=== PATIENT | male | born 2000 | race Caucasian/White ===

== ENCOUNTER 2020-01-10 12:59 | Inpatient (IN) | payer BC ==
[2020-01-10 14:05] LABS: Amphetamine Screen,Urine Not Detected (NotDetected); Barbiturate Screen,Urine Not Detected (NotDetected); Benzodiazepines Screen,Urine Not Detected (NotDetected); Cocaine Screen,Urine Not Detected (NotDetected); Methadone Screen, Urine Not Detected (NotDetected); Opiate Screen,Urine Not Detected (NotDetected); Oxycodone Screen, Urine Not Detected (NotDetected); Phencyclidine Screen,Urine Not Detected (NotDetected); Tricyclic Antidepressant,Urine Not Detected (NotDetected); Urn Cannabinoid Scrn Detected (NotDetected)
--- NOTE | 2020-01-10 14:37 | ED ---
Psych HPI - General Chief Complaint: Psychiatric Symptoms Stated Complaint: Mental health Time Seen by Provider: 01/10/20 13:17 Source: patient, family, RN notes reviewed Mode of arrival: ambulatory - History of Present Illness Initial Comments: This is a 19-year-old male with a history depression who presents with his mother today with complaints of feeling suicidal. He apparently broke up with his long-term girlfriend today and this is triggered today's episode. Apparentl y try to overdose about 3 weeks ago. He does admit to using marijuana but no other drugs or alcohol. No definitive plan at this point. Other complaints or modifying factors at this time. MD Complaint: suicidal ideation, feels depressed - Related Data Previous Rx's Medication Instructions Recorded Nicotine 7Mg/24Hr Patch [Habitrol] 1 patch TRANSDERM DAILY patch 01/13/20 Sertraline [Zoloft] 100 mg PO DAILY #30 tab 01/13/20 Allergies Allergy/AdvReac Type Severity Reaction Status Date / Time No Known Allergies Allergy Verified 01/10/20 18:41 Review of Systems ROS Statement: Those systems with pertinent positive or pertinent negative responses have been documented in the HPI. ROS Other: All systems not noted in ROS Statement are negative. Past Medical History Past Medical History: No Reported History Past Surgical History: No Surgical Hx Reported Past Psychological History: Depression Smoking Status: Vaper Past Alcohol Use History: None Reported Past Drug Use History: Marijuana General Exam - General Exam Comments Initial Comments: This is a well-developed asthenic appearing male who is awake alert oriented 3 Limitations: no limitations General appearance: alert, in no apparent distress Head exam: Present: atraumatic, normocephalic, normal inspection Eye exam: Present: normal appearance, PERRL, EOMI. Absent: scleral icterus, conjunctival injection, periorbital swelling ENT exam: Present: normal exam, mucous membranes moist Neck exam: Present: normal inspection. Absent: tenderness, meningismus, lymphadenopathy Respiratory exam: Present: normal lung sounds bilaterally. Absent: respiratory distress, wheezes, rales, rhonchi, stridor Cardiovascular Exam: Present: regular rate, normal rhythm, normal heart sounds. Absent: systolic murmur, diastolic murmur, rubs, gallop, clicks GI/Abdominal exam: Present: soft, normal bowel sounds. Absent: distended, tenderness, guarding, rebound, rigid Extremities exam: Present: normal inspection, full ROM, normal capillary refill. Absent: tenderness, pedal edema, joint swelling, calf tenderness Back exam: Present: normal inspection Neurological exam: Present: alert, oriented X3, CN II-XII intact Psychiatric exam: Present: depressed, flat affect, suicidal ideation Skin exam: Present: warm, dry, intact, normal color. Absent: rash Course Vital Signs 01/10/20 13:08 Temperature 98.3 F Pulse Rate 102 H Respiratory 20 Rate Blood Pressure 121/89 O2 Sat by Pulse 98 Oximetry - Reevaluation(s) Reevaluation #1: 01/10/20 15:23 Patient's care is endorsed to Dr. Moran at our shift change and eating. Psychiatric evaluation. Medical Decision Making - Lab Data Result diagrams: 01/11/20 07:59 01/11/20 07:59 Lab Results 01/10/20 Range/Units 13:50 Urine Opiates Screen Not Detected (NotDetected) Ur Oxycodone Screen Not Detected (NotDetected) Urine Methadone Screen Not Detected (NotDetected) Ur Propoxyphene Screen Not Detected (NotDetected) Ur Barbiturates Screen Not Detected (NotDetected) U Tricyclic Antidepress Not Detected (NotDetected) Ur Phencyclidine Scrn Not Detected (NotDetected) Ur Amphetamines Screen Not Detected (NotDetected) U Methamphetamines Scrn Not Detected (NotDetected) U Benzodiazepines Scrn Not Detected (NotDetected) Urine Cocaine Screen Not Detected (NotDetected) U Marijuana (THC) Screen Detected H (NotDetected) Disposition Clinical Impression: Depression, Suicidal ideation Disposition: ADMITTED IP TO THIS HOSP Condition: Good
[2020-01-10] MEDS ORDERED: ACETAMINOPHEN TAB 325 MG TAB PO PRN (16:08)
[2020-01-10] MEDS ORDERED: MAGNESIUM HYDROXIDE 2,400 MG/10 ML CUP PO PRN (16:08)
[2020-01-10] MEDS ORDERED: MAG HYDROX/AL HYDROX/SIMETH 30 ML CUP PO PRN (16:08)
[2020-01-10] MEDS ORDERED: LORazepam 1 MG TAB PO PRN (16:08)
[2020-01-10] MEDS ORDERED: HALOPERIDOL LACTATE 5 MG/ML 1 ML VIAL IM PRN (16:12)
[2020-01-11 08:33] LABS: Basophils % (A) 0 %; Eosinophils # (A) 0.1 k/uL (0-0.7); Eosinophils % (A) 1 %; HGB 17.6 gm/dL (13.0-17.5); Lymphocytes # (A) 2.3 k/uL (1.0-4.8); Lymphocytes % (A) 24 %; MCH 28.3 pg (25.0-35.0); MCHC 31.6 g/dL (31.0-37.0); MCV 89.6 fL (80.0-100.0); Mean Platelet Volume 7.4; Monocytes # (A) 0.4 k/uL (0-1.0); Monocytes % (A) 4 %; Neutrophils # (A) 6.6 k/uL (1.3-7.7); Neutrophils % (A) 69 %; Platelet Count 353 k/uL (150-450); RBC 6.22 m/uL (4.30-5.90); RDW 12.6 % (11.5-15.5); WBC 9.6 k/uL (4.0-11.0)
[2020-01-11 08:39] LABS: HCT 55.7 % (39.0-53.0)
[2020-01-11] MEDS ORDERED: VENLAFAXINE HCL ER 150 MG CAP PO SCH (09:00)
[2020-01-11 09:38] LABS: ALT 32 U/L (4-49); AST 33 U/L (17-59); African American GFR (CKD) >90 (>60 ml/min/1.73 sqM); Albumin 5.9 g/dL (3.5-5.0); Alkaline Phosphatase 75 U/L (38-126); Anion Gap 12 mmol/L; Blood Urea Nitrogen 17 mg/dL (9-20); Calcium 11.1 mg/dL (8.4-10.2); Carbon Dioxide 29 mmol/L (22-30); Chloride 101 mmol/L (98-107); Cholesterol 216 mg/dL (<200); Glucose 92 mg/dL (74-99); HDL Cholesterol 83 mg/dL (40-60); LDL Cholesterol,Calculated 122 mg/dL (0-99); Non-African American GFR(CKD) >90 (>60 ml/min/1.73 sqM); Potassium 5.1 mmol/L (3.5-5.1); Sodium 142 mmol/L (137-145); Total Bilirubin 1.3 mg/dL (0.2-1.3); Total Protein 9.5 g/dL (6.3-8.2); Triglycerides 56 mg/dL (<150)
--- NOTE | 2020-01-11 12:23 | P.HP ---
Psychiatric H&P - . H&P Date: 01/11/20 History & Physical: Allergies Allergy/AdvReac Type Severity Reaction Status Date / Time No Known Allergies Allergy Verified 01/10/20 18:41 Vital Signs Temp 98.1 F 01/11/20 02:36 Pulse 77 01/11/20 02:36 Resp 14 01/11/20 02:36 BP 128/80 01/11/20 02:36 Pulse Ox 97 01/10/20 18:26 Intake & Output 01/10/20 01/11/20 01/11/20 18:59 06:59 18:59 Weight 63.957 kg Laboratory Last Values WBC 9.6 k/uL (4.0-11.0) 01/11/20 07:59 RBC 6.22 m/uL (4.30-5.90) H 01/11/20 07:59 Hgb 17.6 gm/dL (13.0-17.5) H 01/11/20 07:59 Hct 55.7 % (39.0-53.0) H 01/11/20 07:59 MCV 89.6 fL (80.0-100.0) 01/11/20 07:59 MCH 28.3 pg (25.0-35.0) 01/11/20 07:59 MCHC 31.6 g/dL (31.0-37.0) 01/11/20 07:59 RDW 12.6 % (11.5-15.5) 01/11/20 07:59 Plt Count 353 k/uL (150-450) 01/11/20 07:59 MPV 7.4 01/11/20 07:59 Neutrophils % 69 % 01/11/20 07:59 Lymphocytes % 24 % 01/11/20 07:59 Monocytes % 4 % 01/11/20 07:59 Eosinophils % 1 % 01/11/20 07:59 Basophils % 0 % 01/11/20 07:59 Neutrophils # 6.6 k/uL (1.3-7.7) 01/11/20 07:59 Lymphocytes # 2.3 k/uL (1.0-4.8) 01/11/20 07:59 Monocytes # 0.4 k/uL (0-1.0) 01/11/20 07:59 Eosinophils # 0.1 k/uL (0-0.7) 01/11/20 07:59 Basophils # 0.0 k/uL (0-0.2) 01/11/20 07:59 Sodium 142 mmol/L (137-145) 01/11/20 07:59 Potassium 5.1 mmol/L (3.5-5.1) 01/11/20 07:59 Chloride 101 mmol/L (98-107) 01/11/20 07:59 Carbon Dioxide 29 mmol/L (22-30) 01/11/20 07:59 Anion Gap 12 mmol/L 01/11/20 07:59 BUN 17 mg/dL (9-20) 01/11/20 07:59 Creatinine 0.94 mg/dL (0.66-1.25) 01/11/20 07:59 Est GFR (CKD-EPI)AfAm >90 (>60 ml/min/1.73 sqM) 01/11/20 07:59 Est GFR (CKD-EPI)NonAf >90 (>60 ml/min/1.73 sqM) 01/11/20 07:59 Glucose 92 mg/dL (74-99) 01/11/20 07:59 Calcium 11.1 mg/dL (8.4-10.2) H 01/11/20 07:59 Total Bilirubin 1.3 mg/dL (0.2-1.3) 01/11/20 07:59 AST 33 U/L (17-59) 01/11/20 07:59 ALT 32 U/L (4-49) 01/11/20 07:59 Alkaline Phosphatase 75 U/L (38-126) 01/11/20 07:59 Total Protein 9.5 g/dL (6.3-8.2) H 01/11/20 07:59 Albumin 5.9 g/dL (3.5-5.0) H 01/11/20 07:59 Triglycerides 56 mg/dL (<150) 01/11/20 07:59 Cholesterol 216 mg/dL (<200) H 01/11/20 07:59 LDL Cholesterol, Calc 122 mg/dL (0-99) H 01/11/20 07:59 HDL Cholesterol 83 mg/dL (40-60) H 01/11/20 07:59 TSH 1.800 mIU/L (0.465-4.680) 01/11/20 07:59 Urine Opiates Screen Not Detected (NotDetected) 01/10/20 13:50 Ur Oxycodone Screen Not Detected (NotDetected) 01/10/20 13:50 Urine Methadone Screen Not Detected (NotDetected) 01/10/20 13:50 Ur Propoxyphene Screen Not Detected (NotDetected) 01/10/20 13:50 Ur Barbiturates Screen Not Detected (NotDetected) 01/10/20 13:50 U Tricyclic Antidepress Not Detected (NotDetected) 01/10/20 13:50 Ur Phencyclidine Scrn Not Detected (NotDetected) 01/10/20 13:50 Ur Amphetamines Screen Not Detected (NotDetected) 01/10/20 13:50 U Methamphetamines Scrn Not Detected (NotDetected) 01/10/20 13:50 U Benzodiazepines Scrn Not Detected (NotDetected) 01/10/20 13:50 Urine Cocaine Screen Not Detected (NotDetected) 01/10/20 13:50 U Marijuana (THC) Screen Detected (NotDetected) H 01/10/20 13:50 Coronavirus (PCR) Not Detected (Not Detectd) 01/10/20 16:18 01/11/20 12:14 IDENTIFYING DATA: Patient is a 19-year-old male who currently lives with his parents and siblings and works at [employer] and has no kids. HPI: Patient presented to the hospital yesterday with complaints of suicidal thoughts depression and according to patient there was a recent breakup with his girlfriend. Patient claims that in the ER that he had overdosed approximately 3 weeks ago. Patient's UDS was positive for THC. Patient was seen on the mental health unit today for evaluation. Patient appeared to be anxious and depressed and his affect. He states that for the past 6 months he has been feeling more depressed. He states it is getting Effexor 150 mg daily every day and states that it has not been helping him. He claims that it was "messing with my head". He also claims that he has been feeling more isolative at home and pushing people away. He states that he overdosed on Tylenol 3's 3 weeks ago in his attempt for suicide. He also claims that he has not had suicidal thoughts since then. He described feelings of hopelessness and worthlessness. He claims that his girlfriend broke up with him one day ago which was his acute stressor. He claims that he has been having anxiety and denies any history of manic behaviors in the past. He states that his sleep is poor approximately 3-4 hours of sleep and states that his appetite is poor. Patient denies any suicidal or homicidal ideations intent or plan. At this time patient denies any auditory or visual hallucinations. Patient denies any flight of ideas racing thoughts and increased in goal directed behavior. Patient admits to using marijuana daily approximately 2-3 g a day. He denies any other recreational drug use or cigarettes. PAST PSYCHIATRIC HISTORY: Patient states that he has history of depression and anxiety and depression.. Claims that he is previously on Effexor 150 mg daily for mood. [Patient denies any previous psychiatric hospitalizations.] [Patient denies any psychiatric outpatient follow-up.] He claims that his last suicide attempt was 3 weeks ago when he overdosed on Tylenol threes. PMH:[denies] ALLERGIES: [as per EMR] CHEMICAL DEPENDENCY HISTORY: [as per HPI] FAMILY PSYCHIATRIC/SUBSTANCE USE HISTORY: States that his mother has depression. SOCIAL HISTORY: Patient was born in [place] as his parents were in the . He claims that he grew up in [place]. He states that he completed high school and denies any legal history. He states he currently lives with his parents and siblings and currently works at [employer]. He denies having any kids. MENTAL STATUS EXAM: General Appearance: Patient appears to be thin and tall stated age is alert, [directable, and attempts to cooperate]. Patient appears to have fair hygiene and grooming. Behavior: Patient is seated without any agitated behavior. [] Speech: Patient's speech is [fluent and nonpressured.] Mood/Affect: Patient reports their mood is [depressed and anxious], affect is congruent Suicidality/Homicidality: Patient denies having any homicidal ideation intent or plan. [Denies any suicidal ideations intent or plan] Perceptions: Patient denies any visual hallucinations [and denies any auditory hallucinations] Though content/process: [There is no evidence of any delusional thought content and thought process is linear and goal-directed.] Focus on his symptoms. Memory and concentration: AOX3, grossly intact for the purposes of this session. Can spell "WORLD" backwards Judgment and insight: [poor] STRENGTHS/WEAKNESSES: strength is that patient is [resilient]. Weakness is that patient [has poor insight and is impulsive] INTELLECT: [average] IMPRESSIONS: Major depressive disorder, severe, without psychotic features Anxiety disorder unspecified Cannabis use disorder PLAN: -Patient is admitted under [voluntary] status to MHU for stabilization of psychiatric symptoms and safety. Patient has signed [adult voluntary form and] [medication consent] and is placed in patient's chart. -Medications : Will start patient on Effexor and patient was agreeable to have it cross titrated with Zoloft. Decreased Effexor to 75 mg starting tomorrow and started Zoloft today at 50 mg daily. Patient is also agreeable to take Seroquel 25 mg daily at bedtime for anxiety/mood stabilization/insomnia and to also help with appetite. -Ativan [and Haldol] PRN for agitation/aggression [-Patient was counselled on substance abuse and desired to cut back on use] -Patient was informed of the risks, benefits and side effects of the medication (including possible weight gain, sedation and increase in suicidal thoughts etc) and patient verbally consented to taking the medications. Patient signed med consent form and was placed in chart. -Internal Medicine consult to perform medical evaluation and physical. -NRT -not needed as patient does not smoke. -SW on board for discharge planning. Encourage patient to participate in groups to work on coping skills.
[2020-01-11] MEDS: SERTRALINE 50 MG TAB PO SCH (12:34)
[2020-01-11] MEDS: NICOTINE 7MG/24HR PATCH TRANSDERM SCH (16:26)
[2020-01-11 19:30] LABS: Hemoglobin A1C 5.1 % (4.0-6.0)
[2020-01-11] MEDS: QUEtiapine 25 MG TAB PO SCH (21:15)
--- NOTE | 2020-01-11 23:52 | P.CONS ---
History of Present Illness - Reason for Consult Consult date: 01/11/20 Medical management Requesting physician: Zeyad Bloom - Chief Complaint Suicidal - History of Present Illness Consultation: This is a 19-year-old follows has a history of depression and anxiety. Presented with suicidal thoughts and depression of the recent breakup with his girlfriend. Patient is the ER after he overdosed approximately 3 weeks ago. That time patient urine drug screen was positive for THC. Patient has been more depressed the last few months. . 3 weeks ago he had overdosed on Tylenol 3. Breaking over the girlfriend made things much worse. Does not sleep too well. Appetite is not good. Currently not suicidal. No hallucinations. Does use marijuana. Does vaping. Review of systems: GEN.: None EYES: None HEENT: None NECK: None RESPIRATORY: None CARDIOVASCULAR: None GASTROINTESTINAL: None GENITOURINARY: None MUSCULOSKELETAL: None LYMPHATICS: None HEMATOLOGICAL: None PSYCHIATRY: Anxious and depressed NEUROLOGICAL: None Past medical history to include: Depression Social history: Patient works at [employer] Lives with his parents. Smokes one or 2 joints a day. Does vaping Family history: Reviewed, noncontributory to presentation Physical examination: VITAL SIGNS: 98.1, 77, 14, 128/80, 97% room air GENERAL: BMI 98.2, sitting up, comfortable. EYES: Pupils equal. Conjunctiva normal. HEENT: External appearance of nose and ears normal, oral cavity grossly normal. NECK: JVD not raised; masses not palpable. HEART: First and second heart sounds are normal; no edema. LUNGS: Respiratory rate normal; clear to auscultation. ABDOMEN: Soft, nontender, liver spleen not palpable, no masses palpable. PSYCH: [Alert and oriented x3; mood and affect a bit low. NEUROLOGICAL: Cranial nerves grossly intact; no facial asymmetry, power and sensation grossly intact. LYMPHATICS: No lymph nodes palpable in the axilla and neck INVESTIGATIONS, reviewed in the clinical context: White count 9.6 hemoglobin 17.6 platelets 353 potassium 5.1 creatinine 0.94 TSH 1.8 LDL 122 Urine drug screen positive for marijuana Assessment: -Recreational marijuana use -Mild hypercalcemia likely from dehydration from decreased oral intake -Recreational vaping -Major depression, recurrent with suicidal ideation on presentation Plan: Patient should have a repeat blood work done with his family doctor including his lipid profile. Advised against the use of marijuana and vaping. A copy of this dictation been sent to his family doctor Dr. cruz Thank you Dr. Bloom Past Medical History Past Medical History: No Reported History Past Surgical History: No Surgical Hx Reported Smoking Status: Vaper Medications and Allergies Home Medications Medication Instructions Recorded Confirmed Type Venlafaxine HCl [Effexor XR] 150 mg PO DAILY 01/10/20 01/10/20 History Allergies Allergy/AdvReac Type Severity Reaction Status Date / Time No Known Allergies Allergy Verified 01/10/20 18:41 Physical Exam Vitals: Vital Signs Temp Pulse Pulse Resp BP BP Pulse Ox 01/11/20 02:36 98.1 F 77 14 128/80 01/10/20 18:26 98.2 F 80 16 141/90 97 01/10/20 17:46 97.8 F 78 16 132/78 99 01/10/20 13:08 98.3 F 102 H 20 121/89 98 Intake and Output 01/10/20 01/11/20 01/11/20 22:59 06:59 14:59 Other: Weight 63.957 kg Results CBC & Chem 7: 01/11/20 07:59 01/11/20 07:59 Labs: Abnormal Lab Results - Last 24 Hours (Table) 01/10/20 01/11/20 01/11/20 Range/Units 13:50 07:59 07:59 RBC 6.22 H (4.30-5.90) m/uL Hgb 17.6 H (13.0-17.5) gm/dL Hct 55.7 H (39.0-53.0) % Calcium 11.1 H (8.4-10.2) mg/dL Total Protein 9.5 H (6.3-8.2) g/dL Albumin 5.9 H (3.5-5.0) g/dL Cholesterol 216 H (<200) mg/dL LDL Cholesterol, Calc 122 H (0-99) mg/dL HDL Cholesterol 83 H (40-60) mg/dL U Marijuana (THC) Screen Detected H (NotDetected)
[2020-01-12 06:58] VITALS: RESP 16
[2020-01-12] MEDS: NICOTINE 7MG/24HR PATCH TRANSDERM SCH (08:18)
[2020-01-12] MEDS: SERTRALINE 50 MG TAB PO SCH (08:48)
[2020-01-12] MEDS: VENLAFAXINE HCL ER 75 MG CAP PO SCH (08:48)
--- NOTE | 2020-01-12 11:47 | P.PN ---
Progress Note - Text Progress Note Date: 01/12/20 Clinical Problems: Major depressive disorder severe without psychotic features, cannabis use disorder mild Interim history: I reviewed the medical record, interviewed the patient and discuss his treatment and treatment plan during team meeting. He is a 19-year-old single male admitted voluntarily to psychiatric unit yesterday with complaints of increasing depression, anxiety and suicidal ideation. He became markedly distressed the day prior to admission when he is girlfriend and their long-term relationship. His parents became so concerned about his mental state that they brought him to the ED. He described feeling depressed for approximately the last 3-6 months. He persev erated about a former job that he began as soon as he graduated from high school. He gradually isolated from friends. He talked about working 12 hours per day and going home sleeping only occasionally being with his girlfriend. He presented to the family doctor with complaints of depression and was prescribed Effexor up to 150 mg per day. She experienced little benefit from this antidepressant. 3 weeks ago he became so distraught that he overdosed with Tylenol. He took an unknown quantity of Tylenol with codeine. He vomited up the medication and went to bed. He did not receive medical care or experience adverse outcome. He stated that the day after the overdose he quit his job. 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 Although the pay is substantially less he feels happier because he interaction with other people. Since admission to the unit he has spoken on the telephone with his girlfriend and anticipates a reconciliation. He feels less depressed and denied that he is experiencing suicidal ideation. He expressed an interest in outpatient care including individual psychotherapy. Mental status exam: He presented as a tall thin young male who was ple asant on approach. He made eye contact and attended to the interview. He had no significant distinguishing features or prominent physical abnormalities. He had a anxious and depressed facial expression. He was alert and oriented to person, place and time. He has psychomotor retardation but no abnormal involuntary movements. His speech was spontaneous with decreased rate and rhythm. His affect was depressed and not intense and appropriate. He denied suicidal ideation and wishes. He denied homicidal ideation. He denied feeling hopeless, helpless or worthless. He ruminated about the circumstances that led to this hospitalization, his disappointment with his first job after graduated from high school and his difficulties with his girlfriend. He did not express phobias, ideas reference, paranoid ideation, magical ideation or delusions. His thinking was abstract and associations were coherent, logical and goal directed. He denied hallucinations did not appear to be responding to internal stimuli. Global impression of intellect is average. He is aware of his illness and need for treatment. Assessment: He is a young male who presents with symptoms of depres allison and suicidal ideation in the context of multiple life changes and a recent separation from his long-term girlfriend. He has a recent suicide attempt by overdose. He is keen on being discharged but given his history of a suicide attempt, increasing depression and anxiety, he will need a discharge plan that will include mental health services psychiatric aftercare. Plan: Continue inpatient treatment. Safety precautions. Continue transition of Effexor to sertraline. extension worker to coordinate discharge and aftercare. Encourage participation in therapeutic groups and activities. Evaluate clinical status response to treatment daily basis.
[2020-01-12] MEDS: QUEtiapine 25 MG TAB PO SCH (20:48)
[2020-01-13 06:42] VITALS: BP 103/71; PULSE 87; TEMP 98
[2020-01-13] MEDS: VENLAFAXINE HCL ER 75 MG CAP PO SCH (08:16)
[2020-01-13] MEDS: SERTRALINE 50 MG TAB PO SCH (08:16)
[2020-01-13] MEDS: NICOTINE 7MG/24HR PATCH TRANSDERM SCH (08:16)
--- NOTE | 2020-01-13 11:24 | P.DS ---
Providers Date of admission: 01/10/20 16:04 Attending physician: Zeyad Bloom MD Consults: 01/10/20 16:08 Consult Physician Routine Consulting Provider: Ricardo Bustillos Consult Reason/Comments: medical managemnt Do you want consulting provider notified?: Yes Primary care physician: Renaldo Dial - Discharge Diagnosis(es) (1) Current severe episode of major depressive disorder without prior episode Current Visit: Yes Status: Acute Priority: High (2) Cannabis use disorder, mild, abuse Current Visit: Yes Status: Chronic Priority: Low Hospital Course: HISTORY: He is a 19-year-old single male who [facility] by his parents with complaints of worsening depression and suicidal ideation. He reported experiencing symptoms of depression over the last 6 months for which his primary has prescribed Effexor up to 150 mg daily. He alleged that he overdosed on Tylenol with codeine about 3 weeks prior to admission. He stated he vomited the medication and did not seek medical care. The proximal cause of increased distress was recent breakup with long-term girlfriend. Due to his level of his distress his parents became concerned and brought him to the hospital. On admission he complained of feeling hopeless and helpless. He described symptoms of depression including impaired speech, agitation, increased anxiety, difficulty concentrating, decreased ability to enjoy himself and restless sleep. He denied experiencing psychotic symptoms and denied a history of of episodes of gerson or hypomania. He denied use of drugs and alcohol with the exception of marijuana. HOSPITAL COURSE: The patient and the psychiatric unit under the care of this selling underwriter. We provided a comprehensive biopsychosocial assessment. The admissions consultant lockstitch collar setter completed initial physical exam and medical history and diagnosed recreational marijuana use and recreational sleeping. He suspected the mild hypercalcemia was likely from dehydration secondary to decreased oral intake. The admissions consultant also recommended to have his primary reevaluate his elevated hemoglobin A1c and elevated cholesterol and LDL cholesterol. We tapered and discontinued Effexor and begin a trial of sertraline titrating the dose 20 mg daily. During the hospitalization and he had several telephone calls with his girlfriend and anticipates that they will reconcile. He posed no management problem attend an episode. At time of discharge he described a decrease in subjective feelings of depression and anxiety and specifically denied experiencing suicidal thoughts or wishes. We discussed aftercare and he was very interested in beginning individual psychotherapy. MENTAL STATUS ON DISCHARGE: At time of discharge she presented as a tall, thin male who was pleasant on approach. He made eye contact and attended the interview. No distinguishing features or prominent physical abnormalities. He had a bright facial expression. He was alert and oriented to person, place and time. He showed no abnormality of psychomotor activity. His speech was spontaneous with slight decrease in rate and rhythm. His affect was blunted but stable and appropriate. He denied suicidal ideation and wishes. He denied homicidal ideation denied feeling hopeless, helpless or worthless. He ruminated about the circumstances that led to this hospitalization including difficulties having his formal employment and the conflict with his girlfriend. He did not express ideas reference, paranoid ideation or delusions. His thinking was abstract and associations were coherent, logical and goal directed. He denied hallucinations and did not appear to be responding to internal stimuli. DISPOSITION: Discharged to his parents home. Continue sertraline 100 mg daily. He has an appointment at the [facility] on 01/14/2020 at 10 AM. Patient Condition at Discharge: Good Plan - Discharge Summary New Discharge Prescriptions: New Nicotine 7Mg/24Hr Patch [Habitrol] 1 patch TRANSDERM DAILY patch Sertraline [Zoloft] 100 mg PO DAILY #30 tab Discontinued Venlafaxine HCl [Effexor XR] 150 mg PO DAILY Discharge Medication List Nicotine 7Mg/24Hr Patch [Habitrol] 1 patch TRANSDERM DAILY patch 01/13/20 [Rx] Sertraline [Zoloft] 100 mg PO DAILY #30 tab 01/13/20 [Rx] Follow up Appointment(s)/Referral(s): [facility] [Outside] - 01/14/20 10:00 am (Laxmi Dinh) Cody Dial MD [Primary Care Provider] - 1-2 days Activity/Diet/Wound Care/Special Instructions: Activity and diet as tolerated. Avoid the use of street drugs and alcohol. Take all medications as prescribed. When you are in need of refills on your medications please contact your medical provider and/or outpatient psychiatrist to have this done. Please go to scheduled outpatient appointment for aftercare treatment. If symptoms return or become worse, call the crisis line at and/or go to the nearest emergency room for evaluation. Discharge Disposition: HOME SELF-CARE
[2020-01-14] MEDS ORDERED: SERTRALINE 100 MG TAB PO SCH (09:00)
== END 2020-01-13 11:20 | disposition home or self-care (01) | DRG 885 ==
LOC: EC 12:59 → 3MHU 16:04
PROVIDERS: ADMIT Psychiatry & Neurology Psychiatry; ATTEND Psychiatry & Neurology Psychiatry
DX: F33.2 Major depressive disorder, recurrent severe without psychotic features (principal); R45.851 Suicidal ideations; Z20.828 Contact with and (suspected) exposure to other viral communicable diseases; F41.9 Anxiety disorder, unspecified; F12.10 Cannabis abuse, uncomplicated; E83.52 Hypercalcemia; E86.0 Dehydration; F17.290 Nicotine dependence, other tobacco product, uncomplicated; E78.00 Pure hypercholesterolemia, unspecified; Z71.6 Tobacco abuse counseling; Z79.899 Other long term (current) drug therapy; Z91.5 Personal history of self-harm; Z81.8 Family history of other mental and behavioral disorders
CPT/HCPCS: 80053; 80061; 80306; 82075; 83036; 84443; 85025; 87635; 99285

== ENCOUNTER 2023-04-03 02:15 | Emergency (ER) | payer BC ==
[2023-04-03 02:33] VITALS: TEMP 99.7
[2023-04-03] MEDS: SULFAMETHOX-TMP 800-160MG 1 EACH TAB PO STA (02:43)
[2023-04-03] MEDS: CEPHALEXIN 500 MG CAP PO STA (02:44)
[2023-04-03] MEDS: LIDOCAINE 1% INJ 10MG/ML (20 ML MDV) SQ ONE (02:44)
--- NOTE | 2023-04-03 03:08 | ED ---
General Adult HPI - General Chief complaint: Skin/Abscess/Foreign Body Stated complaint: Pain in lower back Time Seen by Provider: 04/03/23 02:27 Source: patient, RN notes reviewed, old records reviewed Mode of arrival: ambulatory Limitations: no limitations - History of Present Illness Initial comments: 22-year-old male with pain and swelling in the low back, gluteal cleft. Patient denies measured fever, states he has felt hot. No chills. Patient is otherwise healthy with no chronic medical conditions. No prior pilonidal cyst or abscess - Related Data Previous Rx's Medication Instructions Recorded Nicotine 7Mg/24Hr Patch [Habitrol] 1 patch TRANSDERM DAILY patch 01/13/20 Sertraline [Zoloft] 100 mg PO DAILY #30 tab 01/13/20 Cephalexin [Keflex] 500 mg PO QID 10 Days #40 cap 04/03/23 Sulfamethox-Tmp 800-160Mg [Bactrim 1 tab PO Q12HR 10 Days #20 tab 04/03/23 DS 800-160 mg] Allergies Allergy/AdvReac Type Severity Reaction Status Date / Time No Known Allergies Allergy Verified 04/03/23 02:22 Review of Systems ROS Statement: Those systems with pertinent positive or pertinent negative responses have been documented in the HPI. ROS Other: All systems not noted in ROS Statement are negative. Past Medical History Past Medical History: No Reported History History of Any Multi-Drug Resistant Organisms: None Reported Past Surgical History: No Surgical Hx Reported Past Psychological History: Depression Smoking Status: Vaper Past Alcohol Use History: None Reported Past Drug Use History: None Reported General Exam Limitations: no limitations General appearance: alert, in no apparent distress Head exam: Present: atraumatic, normocephalic Eye exam: Present: normal appearance, PERRL ENT exam: Present: normal exam Neck exam: Present: normal inspection. Absent: tenderness, meningismus Respiratory exam: Present: normal lung sounds bilaterally. Absent: respiratory distress, wheezes Cardiovascular Exam: Present: normal rhythm, tachycardia GI/Abdominal exam: Present: soft. Absent: distended Rectal exam: Present: other (Induration and erythema with out appreciable fluctuance in the gluteal cleft, more significant on the right.) Extremities exam: Present: normal inspection Neurological exam: Present: alert, oriented X3, CN II-XII intact Skin exam: Present: warm, dry, intact. Absent: cyanosis, diaphoretic Course Vital Signs 04/03/23 02:19 Temperature 99.7 F H Pulse Rate 125 H Respiratory 22 Rate Blood Pressure 122/81 O2 Sat by Pulse 96 Oximetry Medical Decision Making - Medical Decision Making Was pt. sent in by a medical professional or institution (TAYLOR Haddad, [facility], urgent care, hospital, or assisted...) When possible be specific @ -No Did you speak to anyone other than the patient for history (EMS, parent, family, police, friend...)? What history was obtained from this source @ -No Did you review nursing and triage notes (agree or disagree)? Why? @ -I reviewed and agree with nursing and triage notes Were old charts reviewed (outside hosp., previous admission, EMS record, old EKG, old radiological studies, urgent care reports/EKG's, assisted records)? Report findings @ -No old charts were reviewed Differential Diagnosis (chest pain, altered mental status, abdominal pain women, abdominal pain men, vaginal bleeding, weakness, fever, dyspnea, syncope, headache, dizziness, GI bleed, back pain, seizure, CVA, palpatations, mental health, musculoskeletal)? @ -[Pilonidal cyst, pilonidal abscess, cellulitis EKG interpreted by me (3pts min.). @ -As above X-rays interpreted by me (1pt min.). @ -None done CT interpreted by me (1pt min.). @ -None done U/S interpreted by me (1pt. min.). @ -None done What testing was considered but not performed or refused? (CT, X-rays, U/S, l abs)? Why? @ -None What meds were considered but not given or refused? Why? @ -None Did you discuss the management of the patient with other professionals (professionals i.e. TAYLOR Haddad, [facility]NER, lab, RT, psych nurse, social media specialist, lead pressman [employer], teacher, landcare officer, case loader operator)? Give summary @ -No Was smoking cessation discussed for >3mins.? @ -No Was critical care preformed (if so, how long)? @ -No Were there social determinants of health that impacted care today? How? (Homelessness, low income, unemployed, alcoholism, drug addiction, transportation, low edu. Level, literacy, decrease access to med. care, senior care, rehab)? @ -No Was there de-escalation of care discussed even if they declined (Discuss DNR or withdrawal of care, Hospice)? DNR status @ -No What co-morbidities impacted this encounter? (DM, HTN, Smoking, COPD, CAD, Cancer, CVA, ARF, Chemo, Hep., AIDS, mental health diagnosis, sleep apnea, morbid obesity)? @ -None Was patient admitted / discharged? Hospital course, mention meds given and route, prescriptions, significant lab abnormalities, going to OR and other pertinent info. @ -22-year-old male with pain and swelling consistent with early pilonidal abscess. There is no central fluctuance but there is significant induration. Attempt was made at I&D without any purulence obtained. Patient has had symptoms for only 2 days. Patient started on oral antibiotics, instructed to follow-up with surgery and that this will likely require drainage. Undiagnosed new problem with uncertain prognosis? @ -No Drug Therapy requiring intensive monitoring for toxicity (Heparin, Nitro, Insulin, Cardizem)? @ -No Were any procedures done? @ -No Diagnosis/symptom? @ -Pilonidal abscess, cellulitis Acute, or Chronic, or Acute on Chronic? @ -[Acute Uncomplicated (without systemic symptoms) or Complicated (systemic symptoms)? @ -Default Side effects of treatment? @ -No Exacerbation, Progression, or Severe Exacerbation? @ -No Poses a threat to life or bodily function? How? (Chest pain, [place], [place], pneumonia, PE, COPD, DKA, ARF, appy, cholecystitis, CVA, Diverticulitis, Homicidal, Suicidal, threat to staff... and all critical care pts) @ -[Low risk at this time Disposition Clinical Impression: Pilonidal abscess Disposition: HOME SELF-CARE Condition: Good Instructions (If sedation given, give patient instructions): Pilonidal Cyst (ED), Abscess (ED) Prescriptions: Sulfamethox-Tmp 800-160Mg [Bactrim DS 800-160 mg] 1 tab PO Q12HR 10 Days #20 tab Cephalexin [Keflex] 500 mg PO QID 10 Days #40 cap Is patient prescribed a controlled substance at d/c from ED?: No Referrals: Cody Dial MD [Primary Care Provider] - 1-2 days Eddy Padilla MD [Medical Doctor] - 1-2 days Time of Disposition: 03:06
[2023-04-03 03:59] VITALS: BP 113/72; PULSE 123; RESP 20
== END 2023-04-03 03:36 | disposition home or self-care (01) ==
LOC: EC 02:15
DX: L05.01 Pilonidal cyst with abscess (principal); F17.290 Nicotine dependence, other tobacco product, uncomplicated; Z86.59 Personal history of other mental and behavioral disorders
CPT/HCPCS: 99283; J2001

== ENCOUNTER 2023-06-04 07:53 | Emergency (ER) | payer BC ==
--- NOTE | 2023-06-04 08:10 | ED ---
General Adult HPI - General Chief complaint: Nausea/Vomiting/Diarrhea Stated complaint: Abd Pain Time Seen by Provider: 06/04/23 07:59 Source: patient, RN notes reviewed Mode of arrival: ambulatory Limitations: no limitations - History of Present Illness Initial comments: 22-year-old male presents emergency department with chief complaint of abdominal discomfort, nausea vomiting diarrhea. He states he woke up abruptly around midnight states that he started having nausea and vomiting pain started after multiple episodes of emesis. Patient states she says her episodes of diarrhea denies any melena hematochezia. Patient denies any reported fever. Patient denies any chest pain shortness of breath states pain in his abdomen wraps around to his back denies any pancreatic issues. - Related Data Previous Rx's Medication Instructions Recorded Nicotine 7Mg/24Hr Patch [Habitrol] 1 patch TRANSDERM DAILY patch 01/13/20 Sertraline [Zoloft] 100 mg PO DAILY #30 tab 01/13/20 Cephalexin [Keflex] 500 mg PO QID 10 Days #40 cap 04/03/23 Sulfamethox-Tmp 800-160Mg [Bactrim 1 tab PO Q12HR 10 Days #20 tab 04/03/23 DS 800-160 mg] Ondansetron Odt [Zofran Odt] 4 mg PO Q8HR PRN #10 tab 06/04/23 Allergies Allergy/AdvReac Type Severity Reaction Status Date / Time No Known Allergies Allergy Verified 06/04/23 07:58 Review of Systems ROS Statement: Those systems with pertinent positive or pertinent negative responses have been documented in the HPI. ROS Other: All systems not noted in ROS Statement are negative. Past Medical History Past Medical History: No Reported History History of Any Multi-Drug Resistant Organisms: None Reported Past Surgical History: No Surgical Hx Reported Past Psychological History: Depression Smoking Status: Vaper Past Alcohol Use History: None Reported Past Drug Use History: None Reported General Exam Limitations: no limitations General appearance: alert, in no apparent distress Head exam: Present: atraumatic, normocephalic, normal inspection ENT exam: Present: normal exam, mucous membranes moist Neck exam: Present: normal inspection. Absent: tenderness, meningismus, lymphadenopathy Respiratory exam: Present: normal lung sounds bilaterally. Absent: respiratory distress, wheezes, rales, rhonchi, stridor Cardiovascular Exam: Present: normal rhythm, tachycardia, normal heart sounds. Absent: systolic murmur, diastolic murmur, rubs, gallop, clicks GI/Abdominal exam: Present: soft, tenderness (Diffuse), normal bowel sounds. Absent: distended, guarding, rebound, rigid Back exam: Absent: CVA tenderness (R), CVA tenderness (L) Neurological exam: Present: alert Course Vital Signs 06/04/23 07:55 Temperature 97.7 F Pulse Rate 123 H Respiratory 18 Rate Blood Pressure 99/65 O2 Sat by Pulse 96 Oximetry Medical Decision Making - Medical Decision Making Was pt. sent in by a medical professional or institution (, PA, PERSONAL CARE SERVICE PROVIDER, urgent care, hospital, or long-term...) When possible be specific @ -No Did you speak to anyone other than the patient for history (EMS, parent, family, police, friend...)? What history was obtained from this source @ -No Did you review nursing and triage notes (agree or disagree)? Why? @ -I reviewed and agree with nursing and triage notes Were old charts reviewed (outside hosp., previous admission, EMS record, old EKG, old radiological studies, urgent care reports/EKG's, long-term records)? Report findings @ -No old charts were reviewed Differential Diagnosis (chest pain, altered mental status, abdominal pain women, abdominal pain men, vaginal bleeding, weakness, fever, dyspnea, syncope, headache, dizziness, GI bleed, back pain, seizure, CVA, palpatations, mental health, musculoskeletal)? @ -Differential Abdominal Pain Men: Appendicitis, cholecystitis, diverticulosis, ischemic bowel, pancreatitis, hepatitis, UTI, gastroenteritis, AAA, incarcerated hernia, bowel obstruction, constipation, inflammatory bowel, hepatitis, peptic ulcer disease, splenic infarction, perforated viscus, testicular torsion, this is not meant to be an al l-inclusive list EKG interpreted by me (3pts min.). @ -None X-rays interpreted by me (1pt min.). @ -None done CT interpreted by me (1pt min.). @ -None done U/S interpreted by me (1pt. min.). @ -None done What testing was considered but not performed or refused? (CT, X-rays, U/S, labs)? Why? @ -Consider CT though patient pain has resolved, patient has no localized tenderness. What meds were considered but not given or refused? Why? @ -None Did you discuss the management of the patient with other professionals (professionals i.e. , PA, PERSONAL CARE SERVICE PROVIDER, lab, RT, psych nurse, health and social care teacher, cloth washer, teacher, military police officer, telephonic nurse case manager)? Give summary @ -No Was smoking cessation discussed for >3mins.? @ -No Was critical care preformed (if so, how long)? @ -No Were there social determinants of health that impacted care today? How? (Homelessness, low income, unemployed, alcoholism, drug addiction, trans portation, low edu. Level, literacy, decrease access to med. care, snf, rehab)? @ -No Was there de-escalation of care discussed even if they declined (Discuss DNR or withdrawal of care, Hospice)? DNR status @ -No What co-morbidities impacted this encounter? (DM, HTN, Smoking, COPD, CAD, Cancer, CVA, ARF, Chemo, Hep., AIDS, mental health diagnosis, sleep apnea, morbid obesity)? @ -None Was patient admitted / discharged? Hospital course, mention meds given and route, prescriptions, significant lab abnormalities, going to OR and other pertinent info. @ -Discharge patient presented for nausea vomiting diarrhea. Patient feels great improved with IV fluids and antiemetics. He has no localized abdominal pain does have mild leukocytosis though most likely reactive. We discussed return parameters patient mother agree with plan Undiagnosed new problem with uncertain prognosis? @ -No Drug Therapy requiring intensive monitoring for toxicity (Heparin, Nitro, Insulin, Cardizem)? @ -No Were any procedures done? @ -No Diagnosis/symptom? @ -Gastroenteritis Acute, or Chronic, or Acute on Chronic? @ -Acute Uncomplicated (without systemic symptoms) or Complicated (systemic symptoms)? @ -Uncomplicated Side effects of treatment? @ -No Exacerbation, Progression, or Severe Exacerbation? @ -No Poses a threat to life or bodily function? How? (Chest pain, [place], [place], pneumonia, PE, COPD, DKA, ARF, appy, cholecystitis, CVA, Diverticulitis, Homicidal, Suicidal, threat to staff... and all critical care pts) @ -No - Lab Data Result diagrams: 06/04/23 08:19 06/04/23 08:19 Lab Results 06/04/23 06/04/23 06/04/23 Range/Units 08:19 08:19 08:19 WBC 19.4 H (3.8-10.6) k/uL RBC 5.97 H (4.30-5.90) m/uL Hgb 16.9 (13.0-17.5) gm/dL Hct 52.1 (39.0-53.0) % MCV 87.3 (80.0-100.0) fL MCH 28.4 (25.0-35.0) pg MCHC 32.5 (31.0-37.0) g/dL RDW 12.7 (11.5-15.5) % Plt Count 234 (150-450) k/uL MPV 8.2 Neutrophils % 94 % Lymphocytes % 2 % Monocytes % 3 % Eosinophils % 1 % Basophils % 0 % Neutrophils # 18.2 H (1.3-7.7) k/uL Lymphocytes # 0.3 L (1.0-4.8) k/uL Monocytes # 0.6 (0-1.0) k/uL Eosinophils # 0.2 (0-0.7) k/uL Basophils # 0.0 (0-0.2) k/uL Sodium 142 (137-145) mmol/L Potassium 4.4 (3.5-5.1) mmol/L Chloride 108 H (98-107) mmol/L Carbon Dioxide 24 (22-30) mmol/L Anion Gap 10 mmol/L BUN 21 H (9-20) mg/dL Creatinine 0.87 (0.66-1.25) mg/dL Est GFR (CKD-EPI)AfAm >90 (>60 ml/min/1.73 sqM) Est GFR (CKD-EPI)NonAf >90 (>60 ml/min/1.73 sqM) Glucose 118 H (74-99) mg/dL Calcium 9.4 (8.4-10.2) mg/dL Total Bilirubin 1.4 H (0.2-1.3) mg/dL AST 30 (17-59) U/L ALT 37 (4-49) U/L Alkaline Phosphatase 90 (38-126) U/L Total Protein 7.9 (6.3-8.2) g/dL Albumin 4.9 (3.5-5.0) g/dL Lipase 147 (23-300) U/L Urine Color Yellow Urine Appearance Clear (Clear) Urine pH 5.5 (5.0-8.0) Ur Specific [place] 1.036 H (1.001-1.035) Urine Protein 1+ H (Negative) Urine Glucose (UA) Negative (Negative) Urine Ketones 1+ H (Negative) Urine Blood Trace H (Negative) Urine Nitrite Negative (Negative) Urine Bilirubin Negative (Negative) Urine Urobilinogen <2.0 (<2.0) mg/dL Ur Leukocyte Esterase Negative (Negative) Urine RBC 2 (0-5) /hpf Urine WBC 2 (0-5) /hpf Urine Mucus Many H (None) /hpf Disposition Clinical Impression: Gastroenteritis Disposition: HOME SELF-CARE Condition: Stable Instructions (If sedation given, give patient instructions): Gastroenteritis (ED) Additional Instructions: Please return to the Emergency Department if symptoms worsen or any other concerns. Prescriptions: Ondansetron Odt [Zofran Odt] 4 mg PO Q8HR PRN #10 tab PRN Reason: Nausea Is patient prescribed a controlled substance at d/c from ED?: No Referrals: Cody Dial MD [Primary Care Provider] - 1-2 days Time of Disposition: 09:14
[2023-06-04] MEDS: ONDANSETRON 4 MG/2 ML VIAL IVP STA (08:19)
[2023-06-04] MEDS: SODIUM CHLORIDE 0.9% 2,000 ML IV STA (08:20)
[2023-06-04] MEDS: KETOROLAC 15 MG/ML 1 ML VIAL IVP STA (08:22)
[2023-06-04] MEDS: FAMOTIDINE 20 MG/2 ML VIAL IV STA (08:24)
[2023-06-04 08:50] LABS: Basophils % (A) 0 %; Eosinophils # (A) 0.2 k/uL (0-0.7); Eosinophils % (A) 1 %; HCT 52.1 % (39.0-53.0); HGB 16.9 gm/dL (13.0-17.5); Lymphocytes # (A) 0.3 k/uL (1.0-4.8); Lymphocytes % (A) 2 %; MCH 28.4 pg (25.0-35.0); MCHC 32.5 g/dL (31.0-37.0); MCV 87.3 fL (80.0-100.0); Mean Platelet Volume 8.2; Monocytes # (A) 0.6 k/uL (0-1.0); Monocytes % (A) 3 %; Neutrophils # (A) 18.2 k/uL (1.3-7.7); Neutrophils % (A) 94 %; Platelet Count 234 k/uL (150-450); RBC 5.97 m/uL (4.30-5.90); RDW 12.7 % (11.5-15.5); WBC 19.4 k/uL (3.8-10.6)
[2023-06-04 08:52] LABS: Appearance,Urine Clear (Clear); Bilirubin,Urine Negative (Negative); Blood,Urine Trace (Negative); Color,Urine Yellow; Glucose,Urine (UA) Negative (Negative); Ketones,Urine 1+ (Negative); Leukocyte Esterase,Urine Negative (Negative); Mucus,Urine Many /hpf; Nitrite,Urine Negative (Negative); PH, Urine 5.5 (5.0-8.0); Protein,Urine 1+ (Negative); RBC,Urine 2 /hpf (0-5); Specific Gravity,Urine 1.036 (1.001-1.035); Urobilinogen,Urine <2.0 mg/dL (<2.0); WBC,Urine 2 /hpf (0-5)
[2023-06-04 08:54] LABS: ALT 37 U/L (4-49); AST 30 U/L (17-59); African American GFR (CKD) >90 (>60 ml/min/1.73 sqM); Albumin 4.9 g/dL (3.5-5.0); Alkaline Phosphatase 90 U/L (38-126); Anion Gap 10 mmol/L; Blood Urea Nitrogen 21 mg/dL (9-20); Calcium 9.4 mg/dL (8.4-10.2); Carbon Dioxide 24 mmol/L (22-30); Chloride 108 mmol/L (98-107); Glucose 118 mg/dL (74-99); Lipase 147 U/L (23-300); Non-African American GFR(CKD) >90 (>60 ml/min/1.73 sqM); Potassium 4.4 mmol/L (3.5-5.1); Sodium 142 mmol/L (137-145); Total Bilirubin 1.4 mg/dL (0.2-1.3); Total Protein 7.9 g/dL (6.3-8.2)
[2023-06-04 09:16] VITALS: BP 99/65; RESP 18; TEMP 97.7
[2023-06-04 10:03] VITALS: PULSE 86
== END 2023-06-04 09:56 | disposition home or self-care (01) ==
LOC: EC 07:53
DX: K52.9 Noninfective gastroenteritis and colitis, unspecified (principal); F17.290 Nicotine dependence, other tobacco product, uncomplicated
CPT/HCPCS: 36415; 80053; 83690; 85025; 81001; 99284; 96374; 96375 ×2; 96361 ×2; J2405; J3490; J1885